=== PATIENT | female | born 1995 ===

== ENCOUNTER → 2019-01-01 18:10 | Outpatient (REF) | payer OTHER, SELFPAY ==
[2019-01-01 21:00] LABS: HIV 1 and 2 Antibody NEGATIVE (NEGATIVE); Hep C Virus Ab w/Reflex Quant NEGATIVE s/c (NEGATIVE)
[2019-01-04 12:44] LABS: RPR Screen Nonreactive (Nonreactive)
[2019-01-05 13:35] LABS: HSV 2 IGG AB < 0.90 index (< 0.90); HSV1IGG < 0.90 index (< 0.90)
== END ==
LOC: LAB 18:10
PROVIDERS: Visit Provider Physician Assistant Medical
DX: Z11.3 Encounter for screening for infections with a predominantly sexual mode of transmission (principal)
CPT/HCPCS: 36415; 86592; 86695; 86696; 86703; 86803